=== PATIENT | female | born 1985 | race African-American/Black ===

== ENCOUNTER 2019-06-15 13:33 | Emergency (ER) | payer OTHER ==
[~2019-06-15] VITALS: Ht 170.2 cm; Wt 56.7 kg
[~2019-06-15 13:33] MED LIST: ARIP30TA1 PO; DIVA500T1 PO; QUET400T PO
[2019-06-15 14:00] VITALS: BP 111/63
--- NOTE | 2019-06-15 14:04 | NUR ---
Vital Signs Stable. Pt sent back to [facility]. Awaiting for bed availabilty.
--- NOTE | 2019-06-15 14:50 | NUR ---
PT AMBULATED TO BED 4.
--- NOTE | 2019-06-15 14:52 | NUR ---
BIB SELF c/o COUGH , dizziness , runny nose, congestion, bilateral ear pain x3 months. Med hx: paranoid Schizo. PATIENT STATES PAIN OF 8/10 AT THIS TIME. PATIENT POSITIONED FOR COMFORT; HOB ELEVATED; BEDRAILS UP X1; BED DOWN. ER MD MADE AWARE OF PT STATUS.
--- NOTE | 2019-06-15 16:02 | NUR ---
PA GARCIA EVALUATING PT AT BEDSIDE.
[2019-06-15 16:28] VITALS: BP 118/68
--- NOTE | 2019-06-15 16:28 | NUR ---
Patient discharged with v/s stable. Written and verbal after care instructions given and explained. Patient alert, oriented and verbalized understanding of instructions. Ambulatory with steady gait. All questions addressed prior to discharge. ID band removed. Patient advised to follow up with PMD. Rx of DEVIKA GARCIA ABILIFY given. Patient educated on indication of medication including possible reaction and side effects. Opportunity to ask questions provided and answered.
== END 2019-06-15 16:28 | disposition home or self-care (01) ==
LOC: MED 13:33
DX: R05 Cough (principal); F20.9 Schizophrenia, unspecified; Z76.0 Encounter for issue of repeat prescription; Z79.899 Other long term (current) drug therapy
CPT/HCPCS: 99283

== ENCOUNTER → 2020-02-18 | Emergency (ER) | payer OTHER ==
[~2020-02-18] VITALS: Ht 170.2 cm; Wt 56.7 kg
[~2020-02-18] MED LIST changes: +ARIPiprazole 10 MG TAB PO SCH; +DIVALPROEX 500 MG TABEC PO ONE; +POTASSIUM CHLORIDE 10 MEQ TABER PO ONE; +POTASSIUM CHLORIDE 20% 40 MEQ/15 ML UDC PO ONE; +QUEtiapine FUMARATE 25 MG TAB PO SCH
--- NOTE | 2020-02-18 20:16 | NUR ---
PT TAKEN TO BED 7 VIA GURNEY WITH ASSIST FROM EMS.
[2020-02-18 20:20] VITALS: BP 146/58
--- NOTE | 2020-02-18 20:55 | NUR ---
BLOOD DRAWN AND GIVEN TO LAB. PT UNABLE TO OBTAIN URINE AT THIS TIME. PT PROVIDED WITH PO FLUIDS.
[2020-02-18 21:02] LABS: BASOPHILS % (AUTO) 0.4 % (0.0-2.0); EOSINOPHILS % (AUTO) 0.4 % (0.0-4.0); HEMATOCRIT 30.2 % (36-48); HEMOGLOBIN 9.9 g/dL (12.0-16.0); LYMPHOCYTES # (AUTO) 0.8 K/uL (2.5-16.5); LYMPHOCYTES % (AUTO) 12.5 % (20.5-51.1); MEAN CORPUSCULAR HEMOGLOBIN 24 pg (27-31); MEAN CORPUSCULAR HGB CONC 33 g/dL (33-37); MEAN CORPUSCULAR VOLUME 73.5 fL (80-94); MONOCYTES # (AUTO) 0.3 K/uL (0.8-1.0); MONOCYTES % (AUTO) 4.6 % (1.7-9.3); NEUTROPHILS # (AUTO) 5.2 K/uL (1.8-7.7); NEUTROPHILS % (AUTO) 82.1 % (42.2-75.2); PLATELET COUNT (AUTO) 426 K/uL (140-450); RED BLOOD CELL COUNT(AUTO) 4.11 MIL/uL (4.20-5.40); RED CELL DISTRIBUTION WIDTH 15.8 % (11.6-13.7); WHITE BLOOD COUNT (AUTO) 6.4 K/uL (4.8-10.8)
[2020-02-18 21:08] LABS: ALBUMIN 3.1 g/dL (3.4-5.0); ANION GAP 12.7 (8-16); ASPARTATE AMINOTRANSFERASE 21 U/L (15-37); CARBON DIOXIDE 29.1 mmol/L (21-32); CHLORIDE 102 mmol/L (98-107); CREATININE 0.6 mg/dL (0.6-1.3); GFR ARICAN-AMERICAN 146 mL/min (>90); GLUCOSE 85 mg/dL (74-106); SODIUM SERUM 141 mmol/L (136-145); TOTAL BILIRUBIN 0.2 mg/dL (0.0-1.0); UREA NITROGEN, BLOOD 8 mg/dL (7-18)
[2020-02-18 21:09] LABS: POTASSIUM 2.8 mmol/L (3.5-5.1)
--- NOTE | 2020-02-18 21:15 | NUR ---
PT SEATED IN BED QUIETLY. 1:1 MONITORING AT BEDSIDE. ALL NEEDS MET AT THIS TIME.SAFETY MEASURES IN PLACE. BED LOW AND LOCKED POSITION. WILL CONTINUE TO MONITOR.
--- NOTE | 2020-02-18 22:00 | NUR ---
COVID NASAL AND ORAL SWABS COLLECTED AND TAKEN TO LAB. PT TOLERATED WELL.
--- NOTE | 2020-02-18 22:40 | NUR ---
PT MOVED TO BED #6.
--- NOTE | 2020-02-18 22:50 | NUR ---
URINE COLLECTED VIA CLEAN CATCH AT THIS TIME.
[2020-02-18 23:28] LABS: BARBITURATE, URINE NEGATIVE ng/ml (NEG <=200); BENZODIAZEPINE, URINE NEGATIVE ng/mL (NEG <=200); CANNABINOID, URINE POSITIVE ng/mL (NEG <=50); COCAINE, URINE NEGATIVE ng/mL (NEG <=300); OPIATE, URINE NEGATIVE ng/mL (NEG <=2000); PHENCYCLIDINE SCREEN,URINE NEGATIVE ng/mL (NEG <=25)
--- NOTE | 2020-02-19 01:06 | NUR ---
PT ASLEEP AT THIS TIME. VISIBLE CHEST RISE AND FALL NOTED. SAFETY MEASURES IN PLACE. 1:1 MONITORING.
--- NOTE | 2020-02-19 03:30 | NUR ---
PT SLEEPING IN BED. NO ACUTE DISTRESS OBSERVED. VSS. VISIBLE RISE AND FALL OF CHEST NOTED. WILL CONT TO MONITOR FOR CHANGES. CONTINUES ON 1:1 OBSERVATION.
--- NOTE | 2020-02-19 05:30 | NUR ---
PT ASLEEP AT THIS TIME. VISIBLE CHEST RISE AND FALL NOTED. SAFETY MEASURES IN PLACE. 1:1 MONITORING.
--- NOTE | 2020-02-19 05:58 | NUR ---
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
--- NOTE | 2020-02-19 10:20 | NUR ---
Patient appears to be resting comfortably in bed. Vital Signs within normal limits. Respirations even and unlabored.
--- NOTE | 2020-02-19 15:50 | NUR ---
Patient appears to be resting comfortably in bed. Vital Signs within normal limits. Respirations even and unlabored.
--- NOTE | 2020-02-19 16:51 | NUR ---
Called and refaxed out to all facilities mentioned in prior note per retail warehouse supervisor Lilli Daly/ [facility] [place] Daniele/ Dayo Mccormack/ Meliza Nance/ [facility] Gabi Gloria/ Cherie Rasmussen Many thought discharges would open a placement for today unfornately there are no vacancies yet. Intake is on waiting list at all facilities and will keep us informed of any beds available.
--- NOTE | 2020-02-19 17:45 | NUR ---
DINNER TRAY PROVIDED. PT EATING QUIETLY.
--- NOTE | 2020-02-19 18:41 | NUR ---
Patient appears to be resting comfortably in bed. Vital Signs within normal limits. Respirations even and unlabored.
--- NOTE | 2020-02-19 20:10 | NUR ---
ASSISTED PT TO RESTROOM AT THIS TIME. INDEPENDENTLY AMBULATORY. WILL CONT TO MONITOR
--- NOTE | 2020-02-19 22:31 | NUR ---
LAB AT BEDSIDE
--- NOTE | 2020-02-20 00:30 | NUR ---
PT SLEEPING IN BED, EASILY AROUSED. VSS. CONTINUES ON 1:1 OBSERVATION. WILLCONT TO MONITOR.
--- NOTE | 2020-02-20 02:30 | NUR ---
CONTINUES ON 1:1 OBSERVATION. PT ASLEEP IN BED, EASILY AROUSED. VSS. WILL CONT TO MONITOR.
--- NOTE | 2020-02-20 03:21 | NUR ---
At this time there are still no vacncy at the following facilities Babar Daly -Janice [facility] Chepe- Johnny Mccormack-Parvin mena made aware.
--- NOTE | 2020-02-20 04:39 | NUR ---
1:1 OBSERVATION. PT ASLEEP IN BED WITH VISIBLE RISE AND FALL OF CHEST NOTED, EASILY AROUSED. VSS. WILL CONT TO MONITOR.
--- NOTE | 2020-02-20 06:52 | NUR ---
PT SLEEPING IN BED. EASILY AROUSED. DENIES PAIN. VSS. BED LOW AND LOCKED. CONTINUES ON 1:1 OBSERVATION.
--- NOTE | 2020-02-20 07:00 | NUR ---
RECEIVED TRANSFET OF SHIFT REPORT FROM KHAI CAMPA
--- NOTE | 2020-02-20 07:34 | NUR ---
PT SLEEPING IN BED. NO ACUTE DISTRESS OBSERVED. VS STABLE . VISIBLE RISE AND FALL OF CHEST NOTED. WILL CONTINUE TO MONITOR FOR CHANGES. CONTINUES ON 1:1 OBSERVATION.
--- NOTE | 2020-02-20 08:11 | NUR ---
Dr. Wood is evaluating the patient at bedside.
--- NOTE | 2020-02-20 08:28 | NUR ---
Telepsychiatry consulation ordered as requested by Dr. Wood.
--- NOTE | 2020-02-20 08:45 | NUR ---
BREAKFAST TRAY PROVIDED. PT EATING QUIETLY.
--- NOTE | 2020-02-20 08:48 | NUR ---
BREAKFAST TRAY PROVIDED AT BEDSIDE
--- NOTE | 2020-02-20 09:03 | NUR ---
Received report. [facility] still working on placement at this time.
[2020-02-20 11:11] VITALS: BP 116/76
--- NOTE | 2020-02-20 11:12 | NUR ---
Patient discharged with v/s stable. Written and verbal after care instructions given and explained. Patient alert, oriented and verbalized understanding of instructions. Ambulatory with steady gait. All questions addressed prior to discharge. ID band removed. Patient advised to follow up with PMD. Rx of ABILIFY, BENZTROPINE, SEROQUEL, DEPAKOTE given. Patient educated on indication of medication including possible reaction and side effects. Opportunity to ask questions provided and answered.
== END | disposition home or self-care (01) ==
LOC: EDBD → MED 20:10
DX: F15.129 Other stimulant abuse with intoxication, unspecified (principal); R11.10 Vomiting, unspecified
CPT/HCPCS: 36415; 80053; 80305; 81025; 84132; 85025; 87426; 99284; G0482; U0003; 99285

== ENCOUNTER 2020-02-20 14:35 | Emergency (ER) | payer OTHER ==
[~2020-02-20] VITALS: Ht 170.2 cm; Wt 56.7 kg
[2020-02-20 14:48] VITALS: BP 110/68
[2020-02-20 16:22] VITALS: BP 110/68
== END 2020-02-20 16:22 ==
LOC: MED 14:35 → EDBD 14:35 → MED 16:22
DX: F41.9 Anxiety disorder, unspecified (principal)
CPT/HCPCS: 99281

== ENCOUNTER 2020-02-20 20:45 | Emergency (ER) | payer OTHER ==
[~2020-02-20] VITALS: Ht 172.7 cm; Wt 61.2 kg
[2020-02-20 20:51] VITALS: BP 146/86
[2020-02-21 02:14] VITALS: BP 146/86
== END 2020-02-21 02:14 | disposition home or self-care (01) ==
LOC: MED 20:45
DX: F20.9 Schizophrenia, unspecified (principal)
CPT/HCPCS: 99283